=== PATIENT | male | born 1980 | race Two or more races ===

== ENCOUNTER 2020-11-27 13:45 | Outpatient (REF) | payer OTHER, SELFPAY ==
--- NOTE | ~2020-11-27 | XR_ITS ---
EXAMINATION: XR CHEST CLINICAL INFORMATION: Weight loss COMPARISON: May 23, 2008 TECHNIQUE: 2 views of the chest were obtained. FINDINGS: No significant abnormality is noted involving the heart, lungs, mediastinum, bony thorax or soft tissues. XR/XR chest 2V IMPRESSION: No acute disease.
[2020-11-27 14:52] LABS: Basophils Percent Auto 0.4 % (0-2); Eosinophils Absolute Auto 0.1 X10*3/uL (0.0-0.4); Eosinophils Percent Auto 1.3 % (0-4); Hematocrit 52.4 % (42-52); Hemoglobin 17.2 g/dl (14.0-18.0); Imm Gran Abs Auto 0.04 X10*3/uL (0.00-0.03); Imm Gran Pct Auto 0.6 % (0.0-0.4); Lymphocytes Absolute Auto 2.1 X10*3/uL (1.2-4.9); Lymphocytes Percent Auto 31.1 % (20-40); MANUAL DIFF FLAG NO; Mean Corpuscular HGB Conc 32.8 g/dl (31.0-36.0); Mean Corpuscular Hemoglobin 28.1 pg (27.0-33.0); Mean Corpuscular Volume 85.6 fL (80-98); Mean Platelet Volume 10.9 fL (9.4-12.4); Monocytes Absolute Auto 0.6 X10*3/uL (0.1-1.2); Monocytes Percent Auto 8.9 % (2-11); Neutrophils Absolute Auto 3.9 X10*3/uL (2.0-8.3); Neutrophils Percent Auto 57.7 % (45-73); Platelet Count 373 X10*3/uL (160-400); Red Blood Count 6.12 X10*6/uL (4.60-5.80); Red Cell Distribution Width 12.5 % (11.0-16.0); White Blood Count 6.7 X10*3/uL (4.8-10.8)
[2020-11-27 15:21] LABS: Alanine Aminotransferase 15 U/L (0-40); Albumin Level 4.7 g/dL (3.5-5.0); Alkaline Phosphatase 71 U/L (39-117); Anion Gap 17 (12-20); Aspartate Amino Transferase 14 U/L (5-37); Bilirubin Total 1.2 mg/dL (0.0-1.0); Blood Urea Nitrogen 18 mg/dL (9-16); Calcium 9.9 mg/dL (8.4-10.2); Carbon Dioxide 26 mmol/L (22-29); Chloride 102 mmol/L (96-108); Estimated Glomerular Filt Rate > 60; Glucose Random 82 mg/dL (60-115); Lipase 30 U/L (8-78); Potassium 4.6 mmol/L (3.3-5.1); Sodium 140 mmol/L (135-145); Total Protein 8.4 g/dL (6.5-8.0)
== END 2020-11-27 13:46 | disposition home or self-care (01) ==
LOC: HO.LAB 13:45
PROVIDERS: PCP Internal Medicine; Visit Provider Internal Medicine
DX: R13.10 Dysphagia, unspecified (principal); K20.90 Esophagitis, unspecified without bleeding; R63.4 Abnormal weight loss; J45.909 Unspecified asthma, uncomplicated
CPT/HCPCS: 36415; 71046; 80053; 82550; 83690; 85025

== ENCOUNTER 2020-12-09 07:07 | Day surgery (SDC) | payer OTHER, SELFPAY ==
[2020-12-04 13:22] VITALS: BMI 25.5
[2020-12-08 08:21] VITALS: BMI 25.5
--- NOTE | 2020-12-08 08:49 | HO.ANESPROP2 ---
HPI - Anesthesia Eval Consult details Narrative: 40yo M for Upper Endoscopy PMFSH Past Medical History Medical History Asthma Surgical History Surgical History No significant past surgical history Social History Social History Use of substances other than those prescribed or required for medical reasons: No Advance Directives: No Advance Directives Information Provided: No Advance Directives on File: No Meds Allergies Allergy/AdvReac Type Severity Reaction Status Date / Time No Known Allergies Allergy Verified 12/09/20 08:08 Home Medications Medication Instructions Recorded Confirmed Last Taken Type omeprazole magnesium [Prilosec OTC] 1 tab PO BID 12/04/20 12/04/20 12/09/20 06:30 History Exam Exam Date and Time: December 08, 2020 0849 Height,Weight and Vital Signs: Height 5 ft 9 in Weight 78.471 kg Pertinent Lab Results Pertinent Lab Results: Laboratory Tests 11/27/20 11/27/20 14:05 14:05 WBC 6.7 Hgb 17.2 Hct 52.4 H Plt Count 373 Sodium 140 Potassium 4.6 Chloride 102 Carbon Dioxide 26 BUN 18 H Creatinine 1.09 Assessment and Plan Assessment Anesthesia Assessment: Chart Reviewed
[2020-12-09 08:20] VITALS: BP 97/70; PULSE 84; RESP 18; TEMP 36.2; O2SAT 96
[2020-12-09] MEDS: Lactated Ringers 1,000 ML 100 ML IVCONT (08:40)
--- NOTE | 2020-12-09 09:02 | MHC.SHP ---
Pre-Procedural Eval Section A The patient is an INPATIENT: No Changes since office visit: No Cold of Flu in the past 2 weeks, No New Medical Problems, No Changes in Medication and No Patient answered all questions The History & Physical has been completed within 30 days and I have reviewed it.: Yes Section B Chief Complaint: reflux disease,dysphagia Allergies: Allergies Allergy/AdvReac Type Severity Reaction Status Date / Time No Known Allergies Allergy Verified 12/09/20 08:08 Plan I have reviewed the history and physical and performed a pertinent physical examination on my patient. No changes have occurred unless specified.
--- NOTE | 2020-12-09 09:27 | P.CONAN_ITS ---
[facility] Past Medical History Medical History Asthma Surgical History Surgical History No significant past surgical history Social History Social History Use of substances other than those prescribed or required for medical reasons: No Advance Directives: No Advance Directives Information Provided: No Advance Directives on File: No Meds Allergies Allergy/AdvReac Type Severity Reaction Status Date / Time No Known Allergies Allergy Verified 12/09/20 08:08 Active Medications: Current Medications Generic Name Dose Route Start Last Admin Trade Name Freq PRN Reason Stop Dose Admin Albuterol Sulfate 2.5 mg 12/09/20 07:53 Albuterol Sulfate (0.083%) 2.5 Mg/3 Ml Vial.Neb INHALE ONCE PRN Shortness of Breath/Wheezing Lactated Ringer's 1,000 mls @ 100 mls/hr 12/09/20 08:00 12/09/20 08:40 Lr IVCONT 100 mls/hr .Q10H HEMANT Administration Home Medications Medication Instructions Recorded Confirmed Last Taken Type omeprazole magnesium [Prilosec OTC] 1 tab PO BID 12/04/20 12/04/20 12/09/20 06:30 History Exam Exam Date and Time: December 09, [id number] Height,Weight and Vital Signs: Height 5 ft 9 in Weight 78.471 kg Last Vital Signs Temp 97.1 F 12/09/20 08:20 Pulse 84 12/09/20 08:20 Resp 18 12/09/20 08:20 BP 97/70 12/09/20 08:20 Pulse Ox 96 12/09/20 08:20 Airway Mallampati Class: II TM Dist: >3cm Neck ROM: Full
[2020-12-09 09:28] VITALS: BP 165/67; PULSE 71; RESP 15; TEMP 36.2; O2SAT 96
--- NOTE | 2020-12-09 09:31 | PM.OP ---
Brief Operative Note Date of Service: 12/09/20 Pre-op diagnosis: gerd dysphagia Post-op diagnosis: same (schatzki ring hiatal hernia) Procedure: egd Surgeon: Aaron Cotto Anesthesia: MAC Estimated blood loss (mL): 5 Pathology: other (bxs egj) Condition: stable Disposition: PACU
--- NOTE | 2020-12-09 09:34 | OP_ITS ---
SURGEON: Aaron Cotto MD INDICATIONS: Dysphagia and gastroesophageal reflux disease. PREOPERATIVE DIAGNOSIS: POSTOPERATIVE DIAGNOSIS: PROCEDURE PERFORMED: Upper endoscopy with balloon dilation and biopsy. ESTIMATED BLOOD LOSS: COMPLICATIONS: ANESTHESIA: ASSISTANTS: SPECIMENS: MEDICATIONS: Monitored anesthesia care. DESCRIPTION OF PROCEDURE: The history and physical performed. The risks and benefits of the procedure were explained to the patient. Informed consent was obtained. The patient was placed in left lateral decubitus position. The Olympus video gastroscope was introduced into the esophagus, stomach, and duodenum. Examination was performed and the scope was removed. He tolerated the procedure well and was taken to recovery area in stable condition. FINDINGS: Esophagus: The esophagus showed a nonobstructive Schatzki ring with some mild irritation at the EG junction. The scope was passed through this with no resistance. There was a 5 cm hiatal hernia. Stomach: The stomach was normal. Duodenum: The bulb and second portion were normal. Balloon dilation of the Schatzki ring to 18 and 20 mm was accomplished with 60 second inflations of an incremental balloon passed through the endoscope. The ring appeared widely patent at the termination of the procedure. Next, biopsies were obtained from the EG junction. IMPRESSION: 1. Hiatal hernia. 2. Schatzki ring. RECOMMENDATION: Follow up the biopsy results. MD OTONIEL Cleaning/LAUREN / [id number]
[2020-12-09 09:43] VITALS: BP 103/73; PULSE 68; RESP 17; TEMP 36.2; O2SAT 98
[2020-12-09 09:53] VITALS: PULSE 69; RESP 17; O2SAT 99
== END 2020-12-09 10:54 | disposition home or self-care (01) ==
PROVIDERS: PCP Internal Medicine; Visit Provider Internal Medicine Gastroenterology
PROC: 0DJ08ZZ Inspection of Upper Intestinal Tract, Via Natural or Artificial Opening Endoscopic (ICD-10-PCS; CPT 43235; principal; 2020-12-09 08:40)
DX: K22.2 Esophageal obstruction (principal); K21.9 Gastro-esophageal reflux disease without esophagitis; K44.9 Diaphragmatic hernia without obstruction or gangrene; J45.909 Unspecified asthma, uncomplicated; Z79.899 Other long term (current) drug therapy
CPT/HCPCS: 43249; 43239; 88305; C1726

== ENCOUNTER 2023-01-19 16:12 | Outpatient (REF) | payer OTHER, SELFPAY ==
--- NOTE | ~2023-01-19 | XR_ITS ---
EXAMINATION: XR CHEST CLINICAL INFORMATION: Cough COMPARISON: Chest radiographs 11/27/2020, 05/23/2008. TECHNIQUE: 2 views of the chest were obtained. FINDINGS: Lungs clear. No airspace consolidation or groundglass opacity. Costophrenic sulci are clear. Heart size normal. Vascularity normal. The hilar and mediastinal contours and bony structures are similar to prior studies. XR/XR chest 2V IMPRESSION: Lungs clear. No acute intrathoracic disease.
[2023-01-19 17:08] LABS: Influenza A PCR NEGATIVE (Negative); Influenza B PCR NEGATIVE (Negative); Resp Syncy Virus RNA Qual PCR NEGATIVE (Negative); SARS COV2 PCR INHOUSE NEGATIVE (Negative)
== END 2023-01-19 16:13 | disposition home or self-care (01) ==
LOC: HO.XRAY 16:12
PROVIDERS: PCP Internal Medicine; Visit Provider Internal Medicine
DX: Z20.822 Contact with and (suspected) exposure to COVID-19 (principal); R05.9 Cough, unspecified; R53.83 Other fatigue
CPT/HCPCS: 0241U; 71046

== ENCOUNTER 2023-12-22 11:36 | Emergency (ER) | payer OTHER, SELFPAY ==
--- NOTE | ~2023-12-22 | XR_ITS ---
EXAMINATION: XR LUMBOSACRAL SPINE CLINICAL INFORMATION: Low back pain COMPARISON: None available. TECHNIQUE: Three views of the lumbosacral spine. FINDINGS: The vertebral bodies and posterior elements are unremarkable. Some minimal anterior endplate osteophytes are present at L1-L2. Disc spaces are preserved and the vertebral alignment is normal. The paraspinal soft tissues are normal. Surgical clips are present in the right upper quadrant. XR/XR lumbar spine 2-3V IMPRESSION: Minimal degenerative changes at L1-L2.
[2023-12-22 12:00] VITALS: BP 110/74; PULSE 74; RESP 17; TEMP 37; O2SAT 97; BMI 27.5
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
[2023-12-22] MEDS: Lidocaine 4 % Patch ADH..PATCH 1 PATCH TRANSDERMA (12:34)
[2023-12-22] MEDS: Ketorolac Tromethamine 30 MG/ML VIAL IM (12:35)
[2023-12-22 13:36] VITALS: BP 135/70; PULSE 65; RESP 17; TEMP 37.1; O2SAT 98
== END 2023-12-22 13:37 | disposition home or self-care (01) ==
PROVIDERS: Emergency Provider Emergency Medicine; PCP Internal Medicine
DX: S39.012A Strain of muscle, fascia and tendon of lower back, initial encounter (principal); V53.5XXA Driver of pick-up truck or van injured in collision with car, pick-up truck or van in traffic accident, initial encounter; Y93.9 Activity, unspecified; Y92.410 Unspecified street and highway as the place of occurrence of the external cause; Y99.0 Civilian activity done for income or pay
CPT/HCPCS: 72100; 96372; 99283; 99284; J1885

== ENCOUNTER 2024-06-26 16:50 | Outpatient (REF) | payer OTHER, SELFPAY ==
[2024-06-26 17:05] LABS: MANUAL DIFF FLAG NO
[2024-06-26 17:13] LABS: Appearance Urine Clear; Color Urine Yellow; Glucose Urine UA Negative (Negative); Leukocyte Esterase Urine Negative (Negative); Nitrite Urine Negative (Negative); PH 5.5 (5.0-9.0); Specific Gravity - Urine >= 1.030 (1.005-1.025); Urine Blood Negative (Negative); Urine Ketones Negative (Negative); Urine Protein Negative (Neg-Trace)
[2024-06-26 17:21] LABS: Basophils Absolute Auto 0.1 X10*3/uL (0.0-0.2); Basophils Percent Auto 0.7 % (0-2); Eosinophils Absolute Auto 0.2 X10*3/uL (0.0-0.4); Eosinophils Percent Auto 2.6 % (0-4); Hematocrit 43.5 % (42.0-52.0); Hemoglobin 12.9 g/dl (14.0-18.0); Imm Gran Abs Auto 0.02 X10*3/uL (0.00-0.03); Imm Gran Pct Auto 0.3 % (0.0-0.4); Lymphocytes Percent Auto 28.2 % (20-40); Mean Corpuscular HGB Conc 29.7 g/dl (31.0-36.0); Mean Corpuscular Hemoglobin 21.6 pg (27.0-33.0); Mean Corpuscular Volume 72.7 fL (80.0-98.0); Mean Platelet Volume 10.6 fL (9.4-12.4); Neutrophils Absolute Auto 3.8 x10*3/uL (2.0-8.3); Neutrophils Percent Auto 54.2 % (45-73); Platelet Count 362 X10*3/uL (160-400); Red Blood Count 5.98 X10*6/uL (4.60-5.80); Red Cell Distribution Width 16.7 % (11.0-16.0); White Blood Count 6.9 X10*3/uL (4.8-10.8)
[2024-06-26 17:51] LABS: Alanine Aminotransferase 11 U/L (0-40); Albumin Level 4.4 g/dL (3.5-5.0); Alkaline Phosphatase 62 U/L (39-117); Anion Gap 11 (12-20); Aspartate Amino Transferase 19 U/L (5-37); Bilirubin Total 0.6 mg/dL (0.0-1.0); Blood Urea Nitrogen 9 mg/dL (9-16); C Reactive Protein 0.37 mg/dL (< or = 0.50); Calcium 9.7 mg/dL (8.4-10.2); Carbon Dioxide 28 mmol/L (22-29); Chloride 106 mmol/L (96-108); Estimated Glomerular Filt Rate > 60; Glucose Random 111 mg/dL (60-115); Lipase 28 U/L (8-78); Potassium 3.5 mmol/L (3.3-5.1); Sodium 141 mmol/L (135-145); Total Protein 8.1 g/dL (6.5-8.0)
== END 2024-06-26 16:51 | disposition home or self-care (01) ==
LOC: HO.LAB 16:50
PROVIDERS: PCP Internal Medicine; Visit Provider Internal Medicine
DX: R05.9 Cough, unspecified (principal); R10.9 Unspecified abdominal pain
CPT/HCPCS: 36415; 80053; 81003; 83690; 85025; 86140

== ENCOUNTER 2024-06-28 11:45 | Outpatient (REF) | payer OTHER, SELFPAY ==
[2024-06-28 13:27] LABS: Vitamin B12 262 pg/mL (200-900)
== END 2024-06-28 11:46 | disposition home or self-care (01) ==
LOC: HO.LAB 11:45
PROVIDERS: PCP Internal Medicine; Visit Provider Internal Medicine
DX: D64.9 Anemia, unspecified (principal)
CPT/HCPCS: 36415; 82607